=== PATIENT | male | born 1980 | race Caucasian/White ===

== ENCOUNTER → 2019-11-12 13:30 | Outpatient (BNVA) | payer MEDICAID, SELFPAY | PROVIDERS: Family Provider Internal Medicine; PCP Internal Medicine; Visit Provider Specialist | DX: G35 Multiple sclerosis (principal); F17.210 Nicotine dependence, cigarettes, uncomplicated | CPT/HCPCS: 99214 ==

== ENCOUNTER 2019-12-09 08:51 | Outpatient (CLI) | payer MEDICAID, SELFPAY ==
--- NOTE | 2019-12-10 13:59 | PC.NURSE ---
Addendum entered by Sunita Gabriel LPN 12/23/19 15:21: DIAGNOSIS FOR THIS INFUSION IS G35 MULTIPLE SCLEROSIS PER Dr.Applegate GEORGE ,MELISSA 15:22 12/23/2019. Original Note: 12.09.19 0855 IV access in LT ac space by Sunita Gabriel LPN 0900 Tylenol 1000mg PO administered 0900 Benadryl 25mg IVP over 5 minutes 0905 Solumedrol 125mg IVP over 15 minutes by TIA Hendricks 1000 Ocrevus 600mg infusion started at 200ml/hr 1300 infusion complete, iv d/c catheter intact, pressure dressing applied, Sunita Gabriel LPN
== END 2019-12-09 08:52 | disposition home or self-care (01) ==
LOC: NSACUTE 08:53
PROVIDERS: Family Provider Internal Medicine; PCP Internal Medicine; Visit Provider Specialist
DX: G35 Multiple sclerosis (principal)
CPT/HCPCS: 96374; 96375; 96413; 96415; J1200; J2350; J2930; J7040

== ENCOUNTER → 2019-12-10 13:54 | Outpatient (BNVA) | payer MEDICAID, SELFPAY | PROVIDERS: Family Provider Internal Medicine; PCP Internal Medicine; Visit Provider Anesthesiology | DX: M54.5 Low back pain (principal); M79.651 Pain in right thigh; M79.652 Pain in left thigh; F17.210 Nicotine dependence, cigarettes, uncomplicated; Z79.891 Long term (current) use of opiate analgesic; Z71.6 Tobacco abuse counseling | CPT/HCPCS: 99214 ==

== ENCOUNTER → 2020-04-03 08:27 | Outpatient (BNVA) | payer MEDICAID, SELFPAY | PROVIDERS: Family Provider Internal Medicine; PCP Internal Medicine; Visit Provider Anesthesiology | DX: M54.41 Lumbago with sciatica, right side (principal); M54.42 Lumbago with sciatica, left side; F17.210 Nicotine dependence, cigarettes, uncomplicated; Z79.891 Long term (current) use of opiate analgesic | CPT/HCPCS: 99214 ==

== ENCOUNTER 2020-05-27 09:32 | Outpatient (CLI) | payer MEDICAID, SELFPAY ==
--- NOTE | 2020-06-09 15:30 | PC.NURSE ---
05/27/2020 1300 Ocrevus initiated at 40mls/hr 1330 Ocreuvs titrated 80 mls/hr 1400 titrate 120 mls/hr. 1430 titrated 140 mls/ hr. 1500 titrated 160mls/hr. 1530 titrated 180mls. hr 1600 max rate 200. 1623 Infusion completed. IV discontinued. IV removed, catheter end intact visually cobbann dressing applied.
== END 2020-05-27 09:33 | disposition home or self-care (01) ==
LOC: NSACUTE 09:33
PROVIDERS: Family Provider Internal Medicine; PCP Internal Medicine; Visit Provider Specialist
DX: G35 Multiple sclerosis (principal)
CPT/HCPCS: 96365; 96366; 96375; 99214; J2350; J7040

== ENCOUNTER → 2020-06-02 08:58 | Outpatient (BNVA) | payer MEDICAID, SELFPAY | PROVIDERS: Family Provider Internal Medicine; PCP Internal Medicine; Visit Provider Anesthesiology | DX: M54.42 Lumbago with sciatica, left side (principal); M54.41 Lumbago with sciatica, right side; F17.210 Nicotine dependence, cigarettes, uncomplicated; Z79.891 Long term (current) use of opiate analgesic; Z71.6 Tobacco abuse counseling | CPT/HCPCS: 99214 ==

== ENCOUNTER → 2020-08-06 10:26 | Outpatient (BNVA) | payer MEDICAID, SELFPAY | PROVIDERS: Family Provider Internal Medicine; PCP Internal Medicine; Visit Provider Anesthesiology | DX: M54.5 Low back pain (principal); F17.210 Nicotine dependence, cigarettes, uncomplicated; Z79.891 Long term (current) use of opiate analgesic | CPT/HCPCS: 99212; 99214 ==

== ENCOUNTER → 2020-09-29 10:32 | Outpatient (BNVA) | payer MEDICAID, SELFPAY | PROVIDERS: Family Provider Internal Medicine; PCP Internal Medicine; Visit Provider Nurse Practitioner | DX: M54.5 Low back pain (principal); G35 Multiple sclerosis; F17.210 Nicotine dependence, cigarettes, uncomplicated; Z79.891 Long term (current) use of opiate analgesic | CPT/HCPCS: 99214 ==

== ENCOUNTER → 2020-10-27 13:57 | Outpatient (BNVA) | payer MEDICAID, SELFPAY | PROVIDERS: Family Provider Internal Medicine; PCP Internal Medicine; Visit Provider Anesthesiology | DX: M54.5 Low back pain (principal); F17.210 Nicotine dependence, cigarettes, uncomplicated; Z79.891 Long term (current) use of opiate analgesic | CPT/HCPCS: 99213 ==

== ENCOUNTER 2020-11-18 08:50 | Outpatient (CLI) | payer BC, MEDICAID, SELFPAY ==
[2020-11-18] MEDS: acetaminophen 500 mg Tablet 1000 MG PO (09:50)
[2020-11-18] MEDS: diphenhydrAMINE 50 mg/mL SDV 1mL 25 MG IVP (10:05)
== END 2020-11-18 08:51 | disposition home or self-care (01) ==
LOC: NSACUTE 08:53
PROVIDERS: Family Provider Internal Medicine; PCP Internal Medicine; Visit Provider Specialist
DX: G35 Multiple sclerosis (principal); F17.210 Nicotine dependence, cigarettes, uncomplicated
CPT/HCPCS: 96365; 96366; 96375; 99213; J1200; J2350; J2930; J7040

== ENCOUNTER → 2020-12-23 08:49 | Outpatient (BNVA) | payer BC, MEDICAID, SELFPAY | PROVIDERS: Family Provider Internal Medicine; PCP Internal Medicine; Visit Provider Anesthesiology | DX: M54.5 Low back pain (principal); F17.210 Nicotine dependence, cigarettes, uncomplicated; Z79.891 Long term (current) use of opiate analgesic | CPT/HCPCS: 99213 ==

== ENCOUNTER → 2021-02-23 08:20 | Outpatient (BNVA) | payer BC, MEDICAID, SELFPAY | PROVIDERS: Family Provider Internal Medicine; PCP Internal Medicine; Visit Provider Anesthesiology | DX: M54.5 Low back pain (principal); F17.210 Nicotine dependence, cigarettes, uncomplicated; Z79.891 Long term (current) use of opiate analgesic | CPT/HCPCS: 99213 ==

== ENCOUNTER → 2021-04-23 08:30 | Outpatient (BNVA) | payer BC, MEDICAID, SELFPAY | PROVIDERS: PCP Internal Medicine; Visit Provider Anesthesiology | DX: M54.5 Low back pain (principal); Z87.891 Personal history of nicotine dependence; Z79.891 Long term (current) use of opiate analgesic | CPT/HCPCS: 99213 ==

== ENCOUNTER → 2021-04-28 09:32 | Outpatient (BNVA) | payer BC, SELFPAY | PROVIDERS: PCP Internal Medicine; Visit Provider Social Worker | DX: F06.4 Anxiety disorder due to known physiological condition (principal) | CPT/HCPCS: 90834 ==

== ENCOUNTER → 2021-05-14 14:42 | Outpatient (BNVA) | payer BC, SELFPAY | PROVIDERS: PCP Internal Medicine; Visit Provider Registered Nurse Neonatal Intensive Care | DX: Z20.822 Contact with and (suspected) exposure to COVID-19 (principal) | CPT/HCPCS: 87635 ==

== ENCOUNTER → 2021-06-22 09:10 | Outpatient (BNVA) | payer BC, SELFPAY | PROVIDERS: PCP Internal Medicine; Visit Provider Anesthesiology | DX: M54.5 Low back pain (principal); Z79.891 Long term (current) use of opiate analgesic | CPT/HCPCS: 99213 ==

== ENCOUNTER 2021-07-19 09:34 | Outpatient (CLI) | payer BC, MEDICAID, SELFPAY ==
[2021-07-19] VITALS (7 sets, daily range): BP systolic 97–127; BP diastolic 59–76; PULSE 66–85; RESP 16–18; TEMP 36.2–37.1; O2SAT 96–99
[2021-07-19] MEDS: acetaminophen 500 mg Tablet 1000 MG PO (10:20)
[2021-07-19] MEDS: sodium chloride 0.9% 250 ML 75 ML IV (10:24)
[2021-07-19] MEDS: diphenhydrAMINE 50 mg/mL SDV 1mL 25 MG IV (10:25)
== END 2021-07-19 09:35 | disposition home or self-care (01) ==
LOC: ONCMED 09:38
PROVIDERS: PCP Internal Medicine; Visit Provider Specialist
DX: G35 Multiple sclerosis (principal); Z86.16 Personal history of COVID-19
CPT/HCPCS: 96365; 96366; 96375; 99214; J1200; J2350; J7050

== ENCOUNTER 2021-08-03 06:42 | Outpatient (CLI) | payer BC, MEDICAID, SELFPAY ==
[2021-08-03] VITALS (7 sets, daily range): BP systolic 105–112; BP diastolic 45–64; PULSE 67–78; RESP 18; TEMP 36.4–37.5; O2SAT 98–100
[2021-08-03] MEDS: acetaminophen 500 mg Tablet 1000 MG PO (09:48)
[2021-08-03] MEDS: diphenhydrAMINE 50 mg/mL SDV 1mL 25 MG IV (09:55)
[2021-08-03] MEDS: sodium chloride 0.9% 250 ML 75 ML IV (09:55)
== END 2021-08-03 06:43 | disposition home or self-care (01) ==
LOC: ONCMED 06:43
PROVIDERS: PCP Internal Medicine; Visit Provider Specialist
DX: G35 Multiple sclerosis (principal)
CPT/HCPCS: 96365; 96366; 96375; J1200; J2350; J7050

== ENCOUNTER 2021-08-04 08:32 | Outpatient (CLI) | payer BC, MEDICAID, SELFPAY ==
--- NOTE | 2021-08-04 08:36 | MR_ITS ---
WS: [id number] MRI HEAD WITH CONTRAST TECHNIQUE: Sagittal T1, T2 axial, T2 axial FLAIR, axial susceptibility weighted imaging, axial diffus ion weighted images, and coronal T2 images were obtained. Pre and post-T1 axial and post T1 coronal i mages. ADC and FSPGR images. CLINICAL INFORMATION: G35 - Multiple sclerosis COMPARISON: MRI May 2018 and December 2016 FINDINGS: No evidence of restricted diffusion to suggest acute ischemia. Ventricular system and basal cisterns are patent. Mild patchy supra and infratentorial white matter changes some in a pericallosal distribu tion compatible with chronic demyelinating plaques. No abnormal gadolinium enhancement to indicate ac tive disease. The number and distribution of lesions is stable compared to 2018. No significant disea se progression. Mild T1 hypointense lesion load. No significant parenchymal volume loss. No significa nt corpus callosal atrophy. Normal vascular flow voids at the skull base. No extra-axial fluid collections. Mild mucosal thickeni ng in the frontal sinuses. Mastoid air cells are well aerated. No hemosiderin on susceptibly weighted images. MR/MR head wo/w con [id number] IMPRESSION: 1. Mild patchy supra and infratentorial white matter changes compatible with c hronic demyelinating plaques. No significant disease progression. 2. No enhancing lesions to indicate active disease. 3. Mild T1 hypointense lesion load. No significant parenchymal volume loss. 4. No abnormal gadolinium enhancement. 5. No hemosiderin on susceptibly weighted images. 6. No significant atrophy of the corpus callosum.
[2021-08-04] MEDS: gadobenate dimeglumine 20 mL vial IV (09:38)
== END 2021-08-04 08:33 | disposition home or self-care (01) ==
PROVIDERS: PCP Internal Medicine; Visit Provider Specialist
DX: G35 Multiple sclerosis (principal)
CPT/HCPCS: 70553; A9577

== ENCOUNTER 2021-08-13 10:30 | Outpatient (CLI) | payer BC, MEDICAID, SELFPAY ==
--- NOTE | 2021-08-13 10:40 | MR_ITS ---
WS: [id number] MRI THORACIC SPINE with and without contrast. HISTORY: G35 - Multiple sclerosis COMPARISON: 01/11/2019 TECHNIQUE: Multiplanar sequences are performed in sagittal and axial planes. Sagittal and axial T1 fat sat sequences post-MultiHance 16 cc IV. Posterior thoracic alignment is normal. Again noted are multilevel areas of increased signal within t he thoracic cord with history of demyelination. Very subtle increased T2 signal at the T3, T4, T6, T7 and T9 levels. Largest area of involvement is 14 mm at T7. These changes were present on the prior s tudy. None of these lesions enhance. No cord enlargement or atrophy. Also noted is increased T2 signal in the RIGHT lateral cervical cord at the C7 level. T1-2: Normal. T2-3: Normal. T3-4: Mild bilateral foraminal narrowing. T4-5: Moderate bilateral foraminal narrowing due to facet disease. T5-6: Moderate bilateral foraminal narrowing due to facet disease. T6-7: Moderate bilateral foraminal narrowing due to facet disease. T7-8: Moderate bilateral foraminal narrowing due to facet disease. T8-9: Moderate bilateral foraminal narrowing due to facet disease. T9-10: Moderate bilateral foraminal narrowing due to facet disease. T10-11: Moderate bilateral foraminal narrowing due to facet disease. T11-12: Moderate bilateral foraminal narrowing due to facet disease. MR/MR thoracic spine wo/w [id number] IMPRESSION: 1. No enhancing demyelinating lesions throughout the thoracic cord. 2. Multilevel areas of demyelination in the thoracic cord are similar distribu tion to 01/11/2019. No cord atrophy. 3. Multilevel moderate bilateral foraminal narrowing due to facet disease as a walter.
--- NOTE | 2021-08-13 10:40 | MR_ITS ---
WS: [id number] MRI CERVICAL SPINE with and without contrast HISTORY: G35 - Multiple sclerosis COMPARISON: 01/11/2019 Technique: Multiplanar, multisequence noncontrast imaging of the cervical spine. Sagittal and axial T 1 fat sat sequences post-MultiHance 16 cc IV. Normal cervical alignment with no compression fracture or significant disc space narrowing. Significant artifact on several sequence probably due to motion during swallowing. Cervical spine dem yelinating lesions are not as well visualized today but this is due to motion. There is no enhancemen t within the cervical cord. Seen best on the axial imaging is focal increased signal in the LEFT late ral cord at the C2 level and RIGHT lateral cord at C3. There may be an additional demyelinating lesio ns but I cannot confirm that due to the motion. Craniocervical junction, C1 and C2 relationship, odontoid process and soft tissues are normal. C2-C3: Normal. C3-C4: Osteophytes with no stenosis. C4-C5: Mild annular disc bulging and vertebral body osteophytes. Very mild narrowing of the LEFT fora men. C5-C6: Mild osteophytic ridging without stenosis. C6-C7: Normal. C7-T1: Normal. Paraspinal soft tissue are normal. MR/MR cervical spine wo/w [id number] IMPRESSION: 1. Quality of this study is compromised by motion. Unfortunately the T2 sequen russell without contrast are significantly graded by breathing and swallowing motio n. 2. There are no new or enhancing demyelinating lesions identified. No cord atr ophy or necrosis identified.
[2021-08-13] MEDS: gadobenate dimeglumine 20 mL vial IV (11:45)
== END 2021-08-13 10:31 | disposition home or self-care (01) ==
LOC: RADSHAW 10:32
PROVIDERS: PCP Internal Medicine; Visit Provider Specialist
DX: G35 Multiple sclerosis (principal)
CPT/HCPCS: 72156; 72157; A9577

== ENCOUNTER → 2021-08-25 09:27 | Outpatient (BNVA) | payer BC, MEDICAID, SELFPAY | PROVIDERS: PCP Internal Medicine; Visit Provider Anesthesiology | DX: M54.50 Low back pain, unspecified (principal); M79.606 Pain in leg, unspecified; Z79.891 Long term (current) use of opiate analgesic | CPT/HCPCS: 99213 ==

== ENCOUNTER → 2021-10-21 08:07 | Outpatient (BNVA) | payer BC, MEDICAID, SELFPAY | PROVIDERS: PCP Internal Medicine; Visit Provider Anesthesiology | DX: Z02.89 Encounter for other administrative examinations (principal); M54.50 Low back pain, unspecified; Z79.891 Long term (current) use of opiate analgesic; Z87.891 Personal history of nicotine dependence | CPT/HCPCS: 99213 ==

== ENCOUNTER 2022-01-06 20:00 | Outpatient (CLI) | payer BC, MEDICAID, SELFPAY | END 2022-01-06 20:01 | disposition home or self-care (01) | LOC: SLEEP 01-07 09:04 | PROVIDERS: PCP Internal Medicine; Visit Provider Anesthesiology Pain Medicine | DX: G47.10 Hypersomnia, unspecified (principal); R06.83 Snoring; R53.83 Other fatigue | CPT/HCPCS: 95810 ==

== ENCOUNTER 2022-01-18 08:31 | Outpatient (CLI) | payer BC, MEDICAID, SELFPAY ==
[2022-01-18 08:41] VITALS: BP 113/72; PULSE 76; RESP 18; TEMP 36.2; O2SAT 98
[2022-01-18] MEDS: acetaminophen 500 mg Tablet 1000 MG PO (09:06)
[2022-01-18] MEDS: sodium chloride 0.9% 250 ML 50 ML IV (09:09)
[2022-01-18] MEDS: diphenhydrAMINE 50 mg/mL SDV 1mL 25 MG IVP ×2 (09:10→10:29)
[2022-01-18 09:31] VITALS: BP 108/72; PULSE 63; RESP 18; TEMP 36.2; O2SAT 98
[2022-01-18 09:49] VITALS: BP 101/65; PULSE 61; RESP 16; TEMP 36.2; O2SAT 96
[2022-01-18 10:18] VITALS: BP 100/65; PULSE 67; RESP 16; TEMP 37; O2SAT 97
[2022-01-18 10:42] VITALS: BP 98/64; PULSE 63; RESP 18; TEMP 36.3; O2SAT 97
[2022-01-18 12:30] VITALS: BP 103/66; PULSE 56; RESP 18; TEMP 36.4; O2SAT 98
== END 2022-01-18 08:32 | disposition home or self-care (01) ==
PROVIDERS: PCP Internal Medicine; Referring Provider Specialist; Visit Provider Specialist
DX: G35 Multiple sclerosis (principal)
CPT/HCPCS: 96365; 96366; 96375; 96376; J1200; J2350; J7040; J7050

== ENCOUNTER 2022-04-26 08:50 | Outpatient (CLI) | payer BC, MEDICAID, SELFPAY ==
--- NOTE | 2022-04-26 09:01 | XR_ITS ---
WS: [email or web address] Lumbar spine with flexion and extension lateral, 04/26/2022 Clinical Data: VERTEBROGENIC LOW BACK PAIN Comparison: Lumbar spine, 12/28/2016. Findings: No compression fractures or subluxation is seen. No disc space narrowing is seen. No limitation of motion or subluxation is seen. There is a large amount of fecal material in the colon. XR/XR lumbar spine f/e only [id number] Impression: Negative lateral lumbar spine.
== END 2022-04-26 08:51 | disposition home or self-care (01) ==
LOC: RAD 08:54
PROVIDERS: PCP Internal Medicine; Visit Provider Nurse Practitioner
DX: M54.51 Vertebrogenic low back pain (principal)
CPT/HCPCS: 72120

== ENCOUNTER → 2022-06-06 14:15 | Outpatient (BNVA) | payer BC, MEDICAID, SELFPAY | PROVIDERS: PCP Internal Medicine; Visit Provider Specialist | DX: G35 Multiple sclerosis (principal); Z87.891 Personal history of nicotine dependence | CPT/HCPCS: 99213; 99214 ==

== ENCOUNTER 2022-07-20 08:26 | Outpatient (CLI) | payer BC, MEDICAID, SELFPAY ==
[2022-07-20 08:31] VITALS: BP 97/62; PULSE 85; RESP 18; TEMP 36.1; O2SAT 99
[2022-07-20] MEDS: acetaminophen 500 mg Tablet 1000 MG PO (09:12)
[2022-07-20] MEDS: sodium chloride 0.9% 250 ML 50 ML IV (09:12)
[2022-07-20] MEDS: diphenhydrAMINE 50 mg/mL SDV 1mL 25 MG IVP ×3 (09:14→11:56)
[2022-07-20 10:01] VITALS: BP 102/66; PULSE 58; RESP 16; TEMP 37.1; O2SAT 96
[2022-07-20 10:40] VITALS: BP 109/69; PULSE 64; RESP 18; TEMP 36.7; O2SAT 97
[2022-07-20 13:00] VITALS: BP 99/64; PULSE 65; RESP 18; TEMP 36.6; O2SAT 99
== END 2022-07-20 08:27 | disposition home or self-care (01) ==
LOC: ONCMED 08:27
PROVIDERS: PCP Internal Medicine; Visit Provider Specialist
DX: G35 Multiple sclerosis (principal)
CPT/HCPCS: 96365; 96366; 96375; 96376; J1200; J2350; J7040; J7050

== ENCOUNTER 2022-08-26 14:52 | Outpatient (CLI) | payer BC, MEDICAID, SELFPAY ==
--- NOTE | 2022-08-26 14:57 | CT_ITS ---
WS: [id number] CT CHEST WITHOUT INTRAVENOUS CONTRAST HISTORY: WEIGHT LOSS/PULMONARY NODULE TECHNIQUE: Contiguous 5 mm axial imaging performed on the thorax. Coronal and sagittal reformats are submitted. All CT scans at [facility] use at least one of these dose optimization techniques: automated exposure control; mA and/or kV adjustment per patient size (includes targeted exams where dose is matched to clinical indication); or iterative reconstruction. CONTRAST: None DLP: 627.11 mGy.cm COMPARISON: Chest radiograph 06/22/2022 Lungs and central airway: Mild elevation of the LEFT hemidiaphragm. There is a wedge-shaped soft tiss ue mass along the medial inferior LEFT lower lobe abutting the paraspinal soft tissues. Wedge-shaped soft tissue nodule measures 18 x 17 mm. There is adjacent pleural thickening and tethering and atelec tasis and groundglass attenuation. Additional small subpleural cyst in the posterior RIGHT upper lobe . Subpleural 3 mm nodule in the lingula. LEFT perifissural nodule measures 3 mm. Pleura: Normal. No pleural effusion. Heart and pericardium: Normal size heart with no pericardial effusion. Mediastinum and huma: No definite lymph nodes are identified. There are a few lymph nodes which are n ot enlarged. Study is limited without IV contrast. Vessels: Normal size pulmonary artery and aorta. Chest wall and lower neck: No soft tissue masses. Upper abdomen: Marked distention of the stomach with food products. The visualized transverse colon i s distended with retained fecal material. No adrenal abnormality. Limited evaluation of the liver fro m metastatic nodules without IV contrast. Osseous structures: No destructive process. CT/CT chest wo con [id number] IMPRESSION: 1. Wedge-shaped consolidation medial LEFT lower lobe measures 18 x 17 mm. Wedg e-shaped consolidation with adjacent atelectasis. As compared to the radiograph obtained on 06/22/2022 there has been an improvement in aeration. I suspect thi s may be the residual of pneumonia. Continued follow-up is recommended to exclu de underlying small neoplasm. There are a few adjacent very small pulmonary nod ules which are also likely benign. Recommendation: 6-[address] follow-up with IV contrast. PET/CT imaging may also provide additional information. 2. No adenopathy appreciated on this unenhanced exam.
== END 2022-08-26 14:53 | disposition home or self-care (01) ==
LOC: RAD 14:53
PROVIDERS: PCP Internal Medicine; Visit Provider Internal Medicine
DX: R91.1 Solitary pulmonary nodule (principal); R63.4 Abnormal weight loss; J98.11 Atelectasis
CPT/HCPCS: 71250

== ENCOUNTER → 2022-09-27 14:50 | Outpatient (BNVA) | payer BC, MEDICAID, SELFPAY | PROVIDERS: PCP Internal Medicine; Visit Provider Internal Medicine | DX: E11.9 Type 2 diabetes mellitus without complications (principal); E78.2 Mixed hyperlipidemia | CPT/HCPCS: 36415; 80053; 80061; 82044; 83036; 86337; 86341 ==

== ENCOUNTER 2022-10-31 15:27 | Outpatient (CLI) | payer BC, MEDICAID, SELFPAY ==
--- NOTE | 2022-10-31 16:04 | CT_ITS ---
WS: [id number] CT CHEST WITH AND WITHOUT INTRAVENOUS CONTRAST HISTORY: Follow-up from 08/26/2022. TECHNIQUE: Contiguous 5 mm axial imaging performed on the thorax. Study performed with and without co ntrast. Coronal and sagittal reformats are submitted. All CT scans at [facility] use at least one of these dose optimization techniques: automated exposure control; mA and/or kV adjustment per p atient size (includes targeted exams where dose is matched to clinical indication); or iterative valentina nstruction. CONTRAST: Omnipaque 350; 95 mL IV. DLP: 621.11 mGy.cm COMPARISON: 08/26/2022 Lungs and central airway: Moderate pulmonary hyperexpansion from emphysema. 4 mm benign-appearing nod ule along the LEFT major fissure. Significant interval improvement in the inflammatory process and co nsolidation in the LEFT lower lobe since 08/26/2022. There is very minimal linear residual opacificat ion measuring 14 x 6 mm. There is mild persistent groundglass attenuation. Very mild bronchial wall t hickening involving the lower lobe branch. Very mild areas of groundglass attenuation LEFT upper lobe . No endobronchial lesion. Pleura: Normal. No pleural effusion. Heart and pericardium: Normal size heart with no pericardial effusion. Mediastinum and huma: No mediastinum or hilar adenopathy. Vessels: Normal size aortic and pulmonary artery. No coronary artery calcifications. Chest wall and lower neck: No soft tissue masses. Upper abdomen: Negative. Osseous structures: No destructive process. CT/CT chest wo/w con [id number] IMPRESSION: 1. Significant interval improvement in the consolidation and inflammatory proc ess in the LEFT lower lobe since 08/26/2021. Minimal residual linear consolidat ion measuring 14 x 6 mm persists. Configuration suggests atelectasis. No additi onal imaging follow-up is probably necessary at this time due to the significan t improvement unless clinically warranted. 2. No adenopathy. 3. No pleural effusions. 4. Moderate chronic emphysema.
[2022-10-31] MEDS: iohexol 350 mg/mL 500 mL Btl (per mL) IV (16:51)
== END 2022-10-31 15:28 | disposition home or self-care (01) ==
PROVIDERS: PCP Internal Medicine; Visit Provider Internal Medicine Pulmonary Disease
DX: Z12.2 Encounter for screening for malignant neoplasm of respiratory organs (principal); Z87.891 Personal history of nicotine dependence; R91.1 Solitary pulmonary nodule; J43.9 Emphysema, unspecified
CPT/HCPCS: 71270; Q9967

== ENCOUNTER 2022-12-06 11:07 | Outpatient (CLI) | payer BC, MEDICAID, SELFPAY | END 2022-12-06 11:08 | disposition home or self-care (01) | LOC: RT 11:09 | PROVIDERS: PCP Internal Medicine; Visit Provider Internal Medicine Pulmonary Disease | DX: R91.8 Other nonspecific abnormal finding of lung field (principal); Z87.891 Personal history of nicotine dependence | CPT/HCPCS: 94060; 94726; 94729 ==

== ENCOUNTER → 2023-01-04 09:21 | Outpatient (BNVA) | payer MEDICARE, BC, MEDICAID, SELFPAY | PROVIDERS: PCP Internal Medicine; Visit Provider Specialist | DX: G35 Multiple sclerosis (principal); F17.200 Nicotine dependence, unspecified, uncomplicated | CPT/HCPCS: 99213 ==

== ENCOUNTER 2023-01-30 08:54 | Outpatient (CLI) | payer MEDICARE, MEDICAID, SELFPAY ==
[2023-01-30 10:18] LABS: Estmated Average Glucose 128; Hemoglobin A1C 6.1 % (4.0-6.0)
[2023-01-30 10:27] LABS: Alanine Aminotransferase 14 U/L (0-41); Albumin Level 4.1 g/dL (3.5-5.2); Alkaline Phosphatase 118 U/L (40-130); Anion Gap 12.3 (5-19); Aspartate Amino Transferase 17 U/L (0-40); Blood Urea Nitrogen 13 mg/dL (6-20); Calcium 8.6 mg/dL (8.5-10.5); Carbon Dioxide 25 mmol/L (22-29); Chloride 104 mmol/L (98-107); Chol HDL Ratio 3.74 mg/dL (1.0-5.00); Cholesterol 146 mg/dL (0-200); Globulin 2.5 g/dL (1.3-4.6); Glomerular Filtration Rate 107.1 mL/min (90-130); Glucose 140 mg/dL (65-115); HDL Cholesterol 39 mg/dL (60-100); LDL Cholesterol Calculated 83 mg/dL (50-129); LDL HDL Ratio 2.13 RATIO (0.00-3.22); Osmolality Calculated 286 mOsm/kg (285-295); Potassium 4.3 mmol/L (3.5-5.1); Sodium 137 mmol/L (136-145); Total Bilirubin 0.3 mg/dL (0.15-1.2); Total Protein 6.6 g/dL (6.6-8.7); Triglycerides 121 mg/dL (0-150)
[2023-01-30 10:48] LABS: Creatinine Urine, Random 83 mg/dL (39-259); Microalbum Creatinine Ratio Ur 12 mg/dL (0-20); Microalbumin Random Urine 1 ug/dL (0-20)
== END 2023-01-30 08:55 | disposition home or self-care (01) ==
LOC: LAB 09:00
PROVIDERS: PCP Internal Medicine; Visit Provider Internal Medicine
DX: E10.9 Type 1 diabetes mellitus without complications (principal); E78.2 Mixed hyperlipidemia; Z79.4 Long term (current) use of insulin; Z79.84 Long term (current) use of oral hypoglycemic drugs
CPT/HCPCS: 36415; 80053; 80061; 82044; 83036; 99214

== ENCOUNTER 2023-03-24 20:56 | Emergency (ER) | payer MEDICARE, MEDICAID, SELFPAY ==
--- NOTE | 2023-03-24 20:57 | ECG_ITS ---
[facility] Test Date: 2023-03-24 Pat Name: Jim Recinos Department: Room: Gender: Male Web Applications Architect: : 1980 Requested By: Valeria Sharma Order Number: [id number] Ruperto MD: Micheal Galdamez M.D. Measurements Intervals [place] Rate: 96 P: 85 KS: 166 QRS: 27 QRSD: 101 T: 67 QT: 325 QTc: 413 Interpretive Statements SINUS RHYTHM No previous ECG available for comparison Electronically Signed On 03-24-2023 22:04:22 CDT by Micheal Galdamez M.D. [id number]
--- NOTE | 2023-03-24 20:57 | XRR_ITS ---
PROCEDURE INFORMATION: Exam: XR Chest Exam date and time: 03/24/2023 9:09 PM Age: 42 years old Clinical indication: Pain; Other: Unspecified; Additional info: Cp TECHNIQUE: Imaging protocol: Radiologic exam of the chest. Views: 1 view. COMPARISON: CT chest wo/w con [id number] 10/31/2022 4:40 PM FINDINGS: Lungs: Unremarkable. No consolidation. Pleural spaces: Unremarkable. No pleural effusion. No pneumothorax. Heart/Mediastinum: Unremarkable. No cardiomegaly. Bones/joints: Unremarkable. XR/XR chest 1V portable [id number] IMPRESSION: No acute findings.
[2023-03-24 20:59] VITALS: BP 122/72; PULSE 102; RESP 14; TEMP 37.6; O2SAT 96
--- NOTE | 2023-03-24 21:33 | ED_ITS ---
HPI - Chest Pain General: Chief Complaint: Chest Pain Stated Complaint: headache, chest pain Time Seen by Provider: 03/24/23 20:58 Source: patient Mode of arrival: ambulatory Limitations: no limitations History of Present Illness: 42-year-old male states of last 4 to 5 days he been having some generalized malaise states been having a constant sharp chest pain as well over his left chest. States the pain is worse with movement and palpation improved with rest. States pain is currently chest 10 he denies any cough denies any fever denies any shortness of breath. States he had a mild headache as well. Associated symptoms: Deny abdominal pain, dyspnea, fever(s), nausea or vomiting Review of Systems Const: Denies: fever(s), chills or body aches Eyes: Denies: eye discomfort ENMT: Reports: dental pain; Denies: throat pain Card: Reports: chest pain Resp: Denies: dyspnea GI: Denies: abdominal pain, nausea, vomiting or diarrhea Musc: Denies: neck pain or back pain Skin/Breast: Denies: rash Neuro: Reports: headache(s) PFSH ED PFSH: Medical History Diabetes Encounter for long-term use of opiate analgesic Lumbar back pain chronic Multiple sclerosis Opioid contract exists Family History Other Chronic kidney disease (CKD) Diabetes Hypertension Denies family history of Stroke Social History Smoking and tobacco status: former smoker Quit status (tobacco): has quit using tobacco Year quit tobacco: 2022 Former quit date comment: 1 ppd x 30 years Second hand smoke exposure: No Alcohol intake: never Substance/Drug Use: never Physical Exam Const: COMMON NORMALS: no acute distress, patient oriented x3 and healthy appearing HENMT: COMMON NORMALS: normocephalic and atraumatic HEAD & SCALP: normoceph alic and atraumatic Neck/C-Spine: COMMON NORMALS: full ROM and supple Chest: COMMONS NORMALS: normal inspection of the chest OTHER: tenderness over left chest wall Resp: COMMON NORMALS: normal respiratory effort, No retractions, No use of accessory muscles and clear to auscultation bilaterally AUSCULTATION: clear to auscultation bilaterally Cardio: COMMON NORMALS: regular rate, regular rhythm and No murmurs present (Cardio) RATE: regular rate RHYTHM: regular rhythm GI: COMMON NORMALS: Normal to inspection, nondistended, normoactive bowel sounds present, Soft to palpation, non-tender and no masses PALPATION: Yes Soft to palpation Extremity: COMMON NORMALS: normal to inspection and full ROM Neuro: COMMON NORMALS: patient oriented x3, moves all extremities and no focal motor deficits Psych: COMMON NORMALS: mental status grossly normal, Normal thought process present and cooperative THOUGHT PROCESS: Normal thought process present Skin: COMMON NORMALS: no rashes or lesions noted and no wounds GENERAL SKIN EXAM: no rashes or lesions noted Course 2 Vital Signs: Vital signs: Vital Signs Temperature 99.6 F 03/24/23 20:59 Pulse Rate 102 H 03/24/23 20:59 Respiratory Rate 14 03/24/23 20:59 Blood Pressure 122/72 03/24/23 20:59 Pulse Oximetry 96 03/24/23 20:59 Oxygen Delivery Me thod Room Air 03/24/23 20:59 MDM - Chest Pain Medical Decision Making Patient presents for chest pains atypical in nature he is point tender on exam likely muscular his troponin here is normal no recent due to hour troponin his pain has been going on for 4 days no signs acute coronary syndrome he is stable for discharge he will follow-up with PCP and return if worsening. Medical Records I reviewed the patient's medical records. Lab Data I reviewed the patient's lab results. 03/24/23 21:15 03/24/23 21:15 Laboratory Results WBC 8.3 10^3/uL (4.0-10.0) 03/24/23 21:15 RBC 5.51 10^6/uL (4.1-5.3) H 03/24/23 21:15 Hgb 15.8 g/dL (11.7-16.6) 03/24/23 21:15 Hct 47.5 % (42.0-52.0) 03/24/23 21:15 MCV 86.2 fl (80-94) 03/24/23 21:15 MCH 28.7 pg (28.0-34.0) 03/24/23 21:15 MCHC 33.3 g/dL (30.0-36.0) 03/24/23 21:15 RDW 12.3 % (12.1-15.1) 03/24/23 21:15 Plt Count 231 10^3/cmm (130-400) 03/24/23 21:15 MPV 9.7 fL (7.4-10.4) 03/24/23 21:15 Neut % (Auto) 64.5 % 03/24/23 21:15 Lymph % (Auto) 22.5 % 03/24/23 21:15 [place] % (Auto) 10.4 % 03/24/23 21:15 Eos % (Auto) 1.7 % 03/24/23 21:15 Baso % (Auto) 0.5 % 03/24/23 21:15 Neut # (Auto) 5.33 10^3/uL (1.8-7.7) 03/24/23 21:15 Lymph # (Auto) 1.9 10^3/uL (0.8-4.8) 03/24/23 21:15 [place] # (Auto) 0.9 10^3/uL (0.2-0.9) 03/24/23 21:15 Eos # (Auto) 0.1 10^3/uL (0.0-0.8) 03/24/23 21:15 Baso # (Auto) 0.0 10^3/uL (0.0-0.1) 03/24/23 21:15 Nucleated RBC % (auto) 0 % 03/24/23 21:15 Nucleated RBCs # 0.0 /100WBC 03/24/23 21:15 PT 12.90 SECONDS (12.1-14.9) 03/24/23 21:15 INR 0.94 (0.8-1.2) 03/24/23 21:15 Sodium 142 mmol/L (136-145) 03/24/23 21:15 Potassium 4.0 mmol/L (3.5-5.1) 03/24/23 21:15 Chloride 104 mmol/L (98-107) 03/24/23 21:15 Carbon Dioxide 27 mmol/L (22-29) 03/24/23 21:15 Anion Gap 15.0 (5-19) 03/24/23 21:15 BUN 10 mg/dL (6-20) 03/24/23 21:15 Creatinine 0.6 mg/dL (0.7-1.2) L 03/24/23 21:15 GFR Calculation 149.2 mL/min (90-130) H 03/24/23 21:15 Glucose 106 mg/dL (65-115) 03/24/23 21:15 Calculated Osmolality 293 mOsm/kg (285-295) 03/24/23 21:15 Calcium 10.0 mg/dL (8.5-10.5) 03/24/23 21:15 Total Bilirubin 0.4 mg/dL (0.15-1.2) 03/24/23 21:15 AST 19 U/L (0-40) 03/24/23 21:15 ALT 22 U/L (0-41) 03/24/23 21:15 Alkaline Phosphatase 120 U/L (40-130) 03/24/23 21:15 Troponin T Baseline 6 ng/L (0-15) 03/24/23 21:15 Total Protein 7.4 g/dL (6.6-8.7) 03/24/23 21:15 Albumin 4.6 g/dL (3.5-5.2) 03/24/23 21:15 Globulin 2.8 g/dL (1.3-4.6) 03/24/23 21:15 EKG Data EKG 1: I personally reviewed and interpreted this EKG as follows: EKG interpretation date: 03/24/23 EKG interpretation time: 21:03 Interpretation: nsr hr [address] or t wave abnormalities qrs 101 qt 379 Discharge Plan Discharge Patient Disposition: Home Clinical Impression: Chest pain Condition: Stable Prescriptions: New Naprosyn 500 mg tablet 500 mg PO BID PRN (Reason: pain) Qty: 20 0RF No Action latanoprost 0.005 % drops 1 drop ophthalmic (eye) DAILY tizanidine 4 mg tablet 4 mg PO TID PRN (Reason: muscle spasticity) 30 Days Qty: 90 0RF hydrocodone-acetaminophen 10-325 mg tablet 1 tab PO QID 30 Days Qty: 120 0RF Rx Instructions: fill on or after 11/26/21 metformin 500 mg tablet 1,000 mg PO BID cholecalciferol (vitamin D3) 50 mcg (2,000 unit) capsule 50 mcg PO DAILY Qty: 120 2RF Rx Instructions: Take one daily Ocrevus 30 mg/mL solution IV .every 6 months albuterol sulfate [Ventolin HFA] 90 mcg/actuation HFA aerosol inhaler 1 inh inhalation QID PRN (Reason: shortness of breath or wheezing) Qty: 8.5 3RF insulin glargine [Lantus Solostar U-100 Insulin] 100 unit/mL (3 mL) insulin pen 30 unit SUBCUT DAILY Qty: 27 3RF Glucerna Shake Liquid See Rx Instructions PO .COMPLEX Qty: 1422 3RF Rx Instructions: 1 orally daily (DME) Dexcom G6 [employer] Misc See Rx Instructions .ROUTE .MEDSUPPLY Qty: 1 3RF Rx Instructions: change every 90 days (DME) Dexcom G6 Transmitter Device See Rx Instructions .ROUTE .MEDSUPPLY Qty: 1 3RF Rx Instructions: change every 3 months (DME) OneTouch Ultra Test Strip See Rx Instructions .Route Qty: 200 1RF Rx Instructions: check 1 to 2 time (DME) lancets [OneTouch UltraSoft Lancets] Misc See Rx Instructions .Route Qty: 100 0RF Rx Instructions: As directed (DME) blood-glucose meter [OneTouch Ultra2 Meter] Kit See Rx Instructions .Route Qty: 1 0RF Rx Instructions: check 1 to 2 (DME) Dexcom G6 Sensor Device See Rx Instructions .ROUTE .MEDSUPPLY Qty: 9 3RF Rx Instructions: change every 10 days (DME) pen needle, diabetic [BD Ultra-Fine Micro Pen Needle] 32 gauge x 1/4 needle See Rx Instructions .Route Qty: 400 3RF Rx Instructions: up to 4 times insulin lispro [Humalog KwikPen Insulin] 100 unit/mL insulin pen 10 unit SUBCUT TID Qty: 30 3RF Discharge Orders: Discharge ED (Routine); Ordered 03/24/23 Ordered By: Valeria Sharma Referrals: Beto Jarvis DO [Primary Care Provider] - 1-3 days Discharge Diet: Advance as tolerated Discharge Activity: Resume usual activity Patient Instructions: Chest Pain (ED) Coding Level of Care Code ED Drug Enforcement Agent for Cindy Arriola
[2023-03-24 21:55] LABS: INR 0.94 (0.8-1.2)
[2023-03-24 21:58] LABS: Basophils % 0.5 %; Eosinophils # 0.1 10^3/uL (0.0-0.8); Eosinophils % 1.7 %; Hematocrit 47.5 % (42.0-52.0); Hemoglobin 15.8 g/dL (11.7-16.6); Lymphocytes # 1.9 10^3/uL (0.8-4.8); Lymphocytes % 22.5 %; Mean Corpuscular HGB Conc 33.3 g/dL (30.0-36.0); Mean Corpuscular Hemoglobin 28.7 pg (28.0-34.0); Mean Corpuscular Volume 86.2 fl (80-94); Mean Platelet Volume 9.7 fL (7.4-10.4); Monocytes # 0.9 10^3/uL (0.2-0.9); Monocytes % 10.4 %; Neutrophils # 5.33 10^3/uL (1.8-7.7); Neutrophils % 64.5 %; Nucleated Red Blood Cells % 0 %; Platelet Count 231 10^3/cmm (130-400); Red Blood Count 5.51 10^6/uL (4.1-5.3); Red Cell Distribution Width 12.3 % (12.1-15.1); White Blood Count 8.3 10^3/uL (4.0-10.0)
[2023-03-24 21:59] LABS: Troponin(5th) Baseline 6 ng/L (0-15)
[2023-03-24 22:02] LABS: Alanine Aminotransferase 22 U/L (0-41); Albumin Level 4.6 g/dL (3.5-5.2); Alkaline Phosphatase 120 U/L (40-130); Aspartate Amino Transferase 19 U/L (0-40); Blood Urea Nitrogen 10 mg/dL (6-20); Carbon Dioxide 27 mmol/L (22-29); Chloride 104 mmol/L (98-107); Globulin 2.8 g/dL (1.3-4.6); Glomerular Filtration Rate 149.2 mL/min (90-130); Glucose 106 mg/dL (65-115); Osmolality Calculated 293 mOsm/kg (285-295); Sodium 142 mmol/L (136-145); Total Bilirubin 0.4 mg/dL (0.15-1.2); Total Protein 7.4 g/dL (6.6-8.7)
[2023-03-24 22:29] VITALS: BP 133/77; PULSE 97; RESP 16; O2SAT 96
== END 2023-03-24 22:30 | disposition home or self-care (01) ==
PROVIDERS: Emergency Provider Emergency Medicine; PCP Internal Medicine
DX: R07.9 Chest pain, unspecified (principal); Z79.4 Long term (current) use of insulin; Z79.84 Long term (current) use of oral hypoglycemic drugs; E11.9 Type 2 diabetes mellitus without complications; G35 Multiple sclerosis; Z87.891 Personal history of nicotine dependence
CPT/HCPCS: 36415; 71045; 80053; 84484; 85025; 85610; 93005; 99285

== ENCOUNTER 2023-05-30 15:09 | Outpatient (CLI) | payer MEDICARE, MEDICAID, BC, SELFPAY ==
[2023-05-30 16:40] LABS: Alanine Aminotransferase 18 U/L (0-41); Albumin Level 4.3 g/dL (3.5-5.2); Alkaline Phosphatase 98 U/L (40-130); Anion Gap 13.9 (5-19); Aspartate Amino Transferase 20 U/L (0-40); Blood Urea Nitrogen 14 mg/dL (6-20); Carbon Dioxide 26 mmol/L (22-29); Chloride 105 mmol/L (98-107); Chol HDL Ratio 3.38 mg/dL (1.0-5.00); Cholesterol 176 mg/dL (0-200); Free T4 Free Thyroxine 1.14 ng/dL (0.82-1.77); Globulin 2.4 g/dL (1.3-4.6); Glucose 108 mg/dL (65-115); HDL Cholesterol 52 mg/dL (60-100); LDL Cholesterol Calculated 84 mg/dL (50-129); LDL HDL Ratio 1.62 RATIO (0.00-3.22); Osmolality Calculated 293 mOsm/kg (285-295); Potassium 3.9 mmol/L (3.5-5.1); Sodium 141 mmol/L (136-145); Thyroid Stimulating Hormone 2.42 uIU/mL (0.27-4.20); Total Bilirubin 0.2 mg/dL (0.15-1.2); Total Protein 6.7 g/dL (6.6-8.7); Triglycerides 199 mg/dL (0-150)
[2023-05-30 16:42] LABS: Estmated Average Glucose 123; Hemoglobin A1C 5.9 % (4.0-6.0)
[2023-05-30 18:21] LABS: Creatinine Urine, Random 14 mg/dL (39-259); Microalbumin Random Urine 1 ug/dL (0-20)
[2023-05-30 18:22] LABS: Microalbum Creatinine Ratio Ur 71 mg/dL (0-20)
[2023-06-01 02:15] LABS: T3 Total 128 ng/dL (76-181)
== END 2023-05-30 15:10 | disposition home or self-care (01) ==
PROVIDERS: PCP Internal Medicine; Visit Provider Internal Medicine
DX: E10.9 Type 1 diabetes mellitus without complications (principal); E78.2 Mixed hyperlipidemia
CPT/HCPCS: 80053; 80061; 82044; 83036; 84439; 84443; 84480

== ENCOUNTER → 2023-06-05 13:30 | Outpatient (BNVA) | payer MEDICARE, MEDICAID, BC, SELFPAY | PROVIDERS: PCP Internal Medicine; Visit Provider Internal Medicine | DX: E78.2 Mixed hyperlipidemia (principal); E10.9 Type 1 diabetes mellitus without complications; Z79.4 Long term (current) use of insulin; Z79.84 Long term (current) use of oral hypoglycemic drugs | CPT/HCPCS: 99214 ==

== ENCOUNTER 2023-11-03 08:13 | Outpatient (CLI) | payer MEDICARE, MEDICAID, SELFPAY ==
[2023-11-03 09:27] LABS: Alanine Aminotransferase 33 U/L (0-41); Alkaline Phosphatase 144 U/L (40-130); Anion Gap 13.4 (5-19); Aspartate Amino Transferase 29 U/L (0-40); Blood Urea Nitrogen 14 mg/dL (6-20); Calcium 9.2 mg/dL (8.5-10.5); Carbon Dioxide 26 mmol/L (22-29); Chloride 108 mmol/L (98-107); Chol HDL Ratio 4.89 mg/dL (1.0-5.00); Cholesterol 186 mg/dL (0-200); Globulin 3.6 g/dL (1.3-4.6); Glomerular Filtration Rate 124.3 mL/min (90-130); Glucose 158 mg/dL (65-115); HDL Cholesterol 38 mg/dL (60-100); LDL Cholesterol Calculated 127 mg/dL (50-129); LDL HDL Ratio 3.34 RATIO (0.00-3.22); Osmolality Calculated 300 mOsm/kg (285-295); Potassium 4.4 mmol/L (3.5-5.1); Sodium 143 mmol/L (136-145); Total Bilirubin 0.3 mg/dL (0.15-1.2); Total Protein 7.6 g/dL (6.6-8.7); Triglycerides 105 mg/dL (0-150)
[2023-11-03 09:32] LABS: Estmated Average Glucose 146; Hemoglobin A1C 6.7 % (4.0-6.0)
[2023-11-03 09:44] LABS: Creatinine Urine, Random 108 mg/dL (39-259); Microalbum Creatinine Ratio Ur 9 mg/dL (0-20); Microalbumin Random Urine 1 ug/dL (0-20)
== END 2023-11-03 08:14 | disposition home or self-care (01) ==
PROVIDERS: PCP Internal Medicine; Visit Provider Internal Medicine
DX: E78.2 Mixed hyperlipidemia (principal); E10.9 Type 1 diabetes mellitus without complications
CPT/HCPCS: 36415; 80053; 80061; 82044; 83036

== ENCOUNTER → 2023-11-10 10:22 | Outpatient (BNVA) | payer MEDICARE, MEDICAID, SELFPAY | PROVIDERS: PCP Internal Medicine; Visit Provider Internal Medicine | DX: E78.2 Mixed hyperlipidemia; G35 Multiple sclerosis; Z12.5 Encounter for screening for malignant neoplasm of prostate; E10.9 Type 1 diabetes mellitus without complications; Z79.4 Long term (current) use of insulin; Z79.84 Long term (current) use of oral hypoglycemic drugs | CPT/HCPCS: 99214 ==

== ENCOUNTER → 2023-11-21 14:36 | Outpatient (BNVA) | payer MEDICARE, MEDICAID, SELFPAY | PROVIDERS: PCP Internal Medicine; Visit Provider Podiatrist Foot & Ankle Surgery | DX: L60.3 Nail dystrophy; E11.628 Type 2 diabetes mellitus with other skin complications; Z79.4 Long term (current) use of insulin; Z79.84 Long term (current) use of oral hypoglycemic drugs | CPT/HCPCS: 11721; 99203 ==

== ENCOUNTER → 2024-01-03 09:26 | Outpatient (BNVA) | payer MEDICARE, MEDICAID, SELFPAY | PROVIDERS: PCP Internal Medicine; Visit Provider Specialist | DX: G35 Multiple sclerosis (principal); Z79.891 Long term (current) use of opiate analgesic | CPT/HCPCS: 99215 ==

== ENCOUNTER 2024-02-08 11:17 | Outpatient (CLI) | payer MEDICARE, MEDICAID, SELFPAY ==
[2024-02-08 11:53] LABS: Estmated Average Glucose 131; Hemoglobin A1C 6.2 % (4.0-6.0)
[2024-02-08 11:57] LABS: Alanine Aminotransferase 27 U/L (0-41); Albumin Level 4.3 g/dL (3.5-5.2); Alkaline Phosphatase 114 U/L (40-130); Anion Gap 11.6 (5-19); Aspartate Amino Transferase 25 U/L (0-40); Blood Urea Nitrogen 16 mg/dL (6-20); Calcium 9.6 mg/dL (8.5-10.5); Carbon Dioxide 29 mmol/L (22-29); Chloride 107 mmol/L (98-107); Chol HDL Ratio 3.84 mg/dL (1.0-5.00); Cholesterol 192 mg/dL (0-200); Globulin 3.1 g/dL (1.3-4.6); Glomerular Filtration Rate 106.5 mL/min (90-130); Glucose 124 mg/dL (65-115); HDL Cholesterol 50 mg/dL (60-100); LDL Cholesterol Calculated 122 mg/dL (50-129); LDL HDL Ratio 2.44 RATIO (0.00-3.22); Osmolality Calculated 299 mOsm/kg (285-295); Potassium 4.6 mmol/L (3.5-5.1); Sodium 143 mmol/L (136-145); Total Bilirubin 0.4 mg/dL (0.15-1.2); Total Protein 7.4 g/dL (6.6-8.7); Triglycerides 100 mg/dL (0-150)
[2024-02-08 12:03] LABS: Creatinine Urine, Random 12 mg/dL (39-259); Microalbumin Random Urine 1 ug/dL (0-20)
[2024-02-08 12:06] LABS: Microalbum Creatinine Ratio Ur 83 mg/dL (0-20)
== END 2024-02-08 11:18 | disposition home or self-care (01) ==
LOC: LAB 11:19
PROVIDERS: PCP Internal Medicine; Visit Provider Internal Medicine
DX: E10.9 Type 1 diabetes mellitus without complications (principal); E78.2 Mixed hyperlipidemia
CPT/HCPCS: 36415; 80053; 80061; 82044; 83036

== ENCOUNTER 2024-02-13 08:11 | Outpatient (CLI) | payer MEDICARE, MEDICAID, SELFPAY ==
--- NOTE | 2024-02-13 08:45 | MR_ITS ---
WS: [id number] MRI CERVICAL SPINE with and without contrast HISTORY: G35 - Multiple sclerosis COMPARISON: None available. Technique: Multiplanar, multisequence noncontrast imaging of the cervical spine. Postcontrast sequenc es, MultiHance 18 mL IV. Posterior cervical alignment is normal. T2 and FLAIR signal abnormalities within the cord are reident ified. T2 and FLAIR signal abnormalities in the cervical cord are identified near the upper cervical spine at the odontoid process. Additional focal increased T2 signal at the C2-3 level. There are scat tered areas of intramedullary demyelinating disease throughout the cervical cord. There is a focal in volving lesion at the T1 level. These lesions are better identified today than on the most recent MRI from 08/13/2021. More similar to the study from 01/11/2019. The signal abnormality at the T1 level lux s not definitely been identified on prior imaging studies. None of the demyelinating lesions enhance. There is no cord atrophy or enlargement. Craniocervical junction, C1 and C2 relationship, odontoid process and soft tissues are normal. C2-C3: Normal. C3-C4: Small foraminal osteophytes. No stenosis. C4-C5: Bilateral facet joint arthritis with mild LEFT foraminal stenosis. C5-C6: Mild osteophytic ridging. C6-C7: Normal. C7-T1: Normal. Paraspinal soft tissue are normal. MR/MR cervical spine wo/w [id number] IMPRESSION: 1. Multilevel level demyelinating lesions in the cervical cord and upper thora cic cord. Largest area of demyelination at the C2-3 level extends over a length of 1.7 cm. 2. New area of demyelination which does not enhance at T1 level measures 0.6 c m. 3. No areas of active demyelination or enhancement.
--- NOTE | 2024-02-13 09:30 | MR_ITS ---
WS: [email or web address] MRI BRAIN WITH AND WITHOUT CONTRAST HISTORY: G35 - Multiple sclerosis COMPARISON: 08/04/2021 TECHNIQUE: Multiplanar imaging performed through the brain with MultiHance 18 ml's IV. No acute infarcts are seen. Charles-white matter differentiation is well preserved. Reidentified are pat loli supra and infratentorial white matter changes. Some of these changes in a pericallosal distributi on consistent with chronic demyelinating plaques. Plaque burden is very similar to the prior examinat ion from 2020. Reidentified are plaques in the upper cervical cord which have been described by dedic ated MRI of the C-spine. No susceptibility artifacts or prior lacunar infarcts. Normal hippocampal formations. Ventricles and extra-axial spaces are normal. Clivus and pituitary gland are normal. Orbits and globes are negative. Postcontrast images are negative for masses or vascular malformations. No enhancement of the demyelin ating lesions. Dural venous sinuses are normal. Paranasal sinuses: Mild mucoperiosteal thickening in the RIGHT ethmoid air cells. No air-fluid levels in the sinuses. Mastoid air cells: Normal. Calvarium and scalp: Normal. MR/MR head wo/w con [id number] IMPRESSION: 1. Stable demyelinating plaques identified in the infratentorial and supratent orial white matter since 08/04/2021. 2. No enhancing lesions to suggest active demyelination. 3. No brain atrophy. 4. No enhancing mass.
[2024-02-13] MEDS: gadobenate dimeglumine 20 mL vial IV (10:14)
--- NOTE | 2024-02-13 10:15 | MR_ITS ---
WS: [id number] MRI THORACIC SPINE with and without contrast HISTORY: G35 - Multiple sclerosis COMPARISON: 08/13/2021 TECHNIQUE: Multiplanar sequences are performed in sagittal and axial planes. MultiHance 18 mL IV. The areas of increased T2 and STIR STIR signal within the thoracic cord are not as well visualized as on the prior study from 01/11/2019. Also not as well visualized as 08/13/2021. Believe these areas ar e still present, scattered throughout the thoracic cord. There was a demyelinating lesion at T1 noted on the cervical MRI which does appear to have been present in 2020. There does not appear to be prog ression of the areas of demyelination but the lesions are not as well visualized today. No areas of e nhancement. No cord atrophy and no hemorrhage. Mild facet joint arthritis in the thoracic spine. No central stenosis or disc protrusions. Increasing facet joint arthritis from the mid to lower thoracic spine. MR/MR thoracic spine wo/w [id number] IMPRESSION: 1. No areas of active demyelination or enhancement within the thoracic cord. 2. The demyelinating lesions of the thoracic cord were better visualized in 20 19. There does not appear to been a progression since the prior exam. 3. No cord atrophy.
== END 2024-02-13 08:12 | disposition home or self-care (01) ==
LOC: RAD 08:12
PROVIDERS: PCP Internal Medicine; Visit Provider Specialist
DX: G35 Multiple sclerosis (principal); E10.628 Type 1 diabetes mellitus with other skin complications; E78.2 Mixed hyperlipidemia; B35.1 Tinea unguium; Z79.4 Long term (current) use of insulin
CPT/HCPCS: 70553; 72156; 72157; 99214; A9577

== ENCOUNTER → 2024-02-27 10:50 | Outpatient (BNVA) | payer MEDICARE, MEDICAID, SELFPAY | PROVIDERS: PCP Internal Medicine; Visit Provider Podiatrist Foot & Ankle Surgery | DX: E10.628 Type 1 diabetes mellitus with other skin complications (principal); L60.3 Nail dystrophy; M21.41 Flat foot [pes planus] (acquired), right foot; M21.42 Flat foot [pes planus] (acquired), left foot; G35 Multiple sclerosis; M21.621 Bunionette of right foot; M21.622 Bunionette of left foot; Z79.4 Long term (current) use of insulin | CPT/HCPCS: 11721; 99213 ==

== ENCOUNTER → 2024-04-03 12:29 | Outpatient (BNVA) | payer MEDICARE, MEDICAID, SELFPAY | PROVIDERS: PCP Internal Medicine; Visit Provider Specialist | DX: G35 Multiple sclerosis (principal); Z79.891 Long term (current) use of opiate analgesic | CPT/HCPCS: 99214; 99215 ==

== ENCOUNTER 2024-04-11 07:59 | Oncology outpatient (recurring) (ONCR) | payer MEDICARE, MEDICAID, SELFPAY ==
--- OUTSIDE RECORDS SUMMARY | 2024-04-05 10:18 | XMS_ITS ---
Author Name Unknown Organization [facility] ALLERGIES AND ADVERSE REACTIONS No information ASSESSMENT No information CHIEF COMPLAINT No information Vital Signs Bpsitting Date Temperature Weight Height Spo2 Respiration Bmi Ti merecorded Pulse 102/60 05/17/20 23 12:00: 00 AM null 181,0.00 6,0 96 20 24.5 08:27 74 130/80 015 12:00: 00 AM 98.4 178,0.00 5,10 null 16 25.54 13:23 76 110/70 018 12:00: 00 AM 98 164,0.00 6,0 97 null 22.24 13:23 78 138/72 017 12:00: 00 AM 97.8 172,0.00 6,0 99 20 23.32 13:23 71 118/66 06/22/20 22 12:00: 00 AM 98.3 138,0.00 6,0 91 16 18.71 13:23 120 116/72 017 12:00: 00 AM 97.5 166,0.00 6,0 99 null 22.51 13:23 69 118/60 02/15/20 18 12:00: 00 AM 98.1 156,0.00 6,0 98 null 21.16 13:23 84 124/72 019 12:00: 00 AM 97.4 154,0.00 6,0 98 18 20.88 13:23 77 118/70 06/19/20 18 12:00: 00 AM 97.9 166,0.00 6,0 98 null 22.51 13:23 74 138/80 020 12:00: 00 AM null 156,2.00 6,0 100 null 21.17 13:23 78 100/60 2013 12:00: 00 AM 97.6 169,0.00 5,10 null null 24.25 13:23 86 130/84 022 12:00: 00 AM null 157,6.00 6,0 98 18 21.34 13:23 64 122/74 2015 12:00: 00 AM null 162,0.00 6,0 95 null 21.97 13:23 86 130/82 10/18/19 22 12:00: 00 AM 97.7 157,0.00 6,0 97 null 21.29 13:23 73 132/80 01/18/20 19 12:00: 00 AM 97.8 165,0.00 null 99 null null 13:23 78 122/70 2017 12:00: 00 AM 98 159,0.00 6,0 96 null 21.56 13:23 80 138/76 015 12:00: 00 AM 98.2 165,0.00 5,10 98 16 23.67 13:23 94 118/76 017 12:00: 00 AM 98.6 168,0.00 6,0 98 null 22.78 13:23 70 140/90 020 12:00: 00 AM 97.8 158,8.00 6,0 97 null 21.49 13:23 120 130/80 021 12:00: 00 AM null 155,6.00 6,0 98 19 21.07 13:23 80 118/66 019 12:00: 00 AM null 154,0.00 6,0 97 20 20.88 13:23 86 110/62 2014 12:00: 00 AM 98 169,0.00 5,10 98 null 24.25 13:23 86 120/70 014 12:00: 00 AM 98.1 159,0.00 5,10 null null 22.81 13:23 70 106/58 014 12:00: 00 AM 98.1 164,0.00 null 97 null null 13:23 106 110/70 2014 12:00: 00 AM 97.5 163,0.00 5,10 98 16 23.39 13:23 94 null 024 12:00: 00 AM 99.4 28,0.00 null null 26 null 18:19 140 130/80 023 12:00: 00 AM 97.8 171,0.00 6,0 98 null 23.19 13:23 84 136/70 11/16/19 23 12:00: 00 AM null 170,0.00 6,0 97 20 23.05 05:57 94 116/70 023 12:00: 00 AM 98.1 178,0.00 null null 16 null 15:04 88 118/74 023 12:00: 00 AM 98.6 null 5,7 97 null null 12:45 96 122/76 024 12:00: 00 AM 98.8 230,0.00 5,6 99 20 37.12 08:56 81 126/70 12/20/19 19 12:00: 00 AM 98 160,0.00 6,0 97 null 21.7 13:23 78 130/78 016 12:00: 00 AM 98 164,0.00 6,0 98 null 22.24 13:23 80 120/78 03/18/20 20 12:00: 00 AM 97.9 159,4.00 6,0 97 null 21.6 13:23 77 116/60 12/18/19 24 12:00: 00 AM 98.1 150,0.00 5,4 95 null 25.74 14:38 null 122/82 06/22/20 23 12:00: 00 AM 98.7 234,0.00 5,10 99 20 33.57 11:35 79 130/72 11/17/19 16 12:00: 00 AM 97.9 176,0.00 6,0 97 16 23.87 13:23 92 120/70 015 12:00: 00 AM 98.6 163,0.00 5,10 95 null 23.39 13:23 84 126/80 018 12:00: 00 AM 97.9 158,0.00 6,0 97 null 21.43 13:23 80 132/76 023 12:00: 00 AM null 182,0.00 6,0 97 22 24.68 05:57 75 126/78 022 12:00: 00 AM null 141,0.00 6,0 98 22 19.12 13:23 110 120/76 021 12:00: 00 AM null 154,0.00 6,0 97 19 20.88 13:23 85 120/76 019 12:00: 00 AM null 159,0.00 6,0 97 null 21.56 13:23 91 130/86 024 12:00: 00 AM 98.3 182,0.00 null null 16 null 15:14 80 118/62 023 12:00: 00 AM null 173,16.0 0 6,0 97 18 23.6 15:37 103 136/80 023 12:00: 00 AM 98 null null null 16 null 10:42 74 128/78 016 12:00: 00 AM null 162,0.00 6,0 98 null 21.97 13:23 85 null 024 12:00: 00 AM null null null null null 29.12 15:08 null null 04/22/20 23 12:00: 00 AM null null null null null null 11:53 null OBJECTIVE DATA No information PHYSICAL EXAMINATION No information TREATMENT PLAN No information PROBLEMS No information RESULTS No information REVIEW OF SYSTEMS No information SUBJECTIVE DATA No information MEDICATIONS No information
--- OUTSIDE RECORDS SUMMARY | 2024-04-05 10:18 | XMS_ITS | Patient Health Record ---
Author Name Unknown Organization [facility] Address [address] [place] [address] Care Team Providers Care Director Of Video Analytics Name Role Phone Lit Montemayor Primary Care Provider [facility] Timo Macedo Unavailable Unavailable Jaime Muniz Unavailable [phone] Timo Gallegos Unavailable [phone] Allergies Allergen (clinical drug ingredient) Drug/Non Drug Allergy documented on EMR Reaction Allergy Type Onset Date Status glipizide glipiZIDE Unknown Drug Allergy Active carisoprodol Soma Unknown Drug Allergy Acti ve Reason For Referral No Information Medications Medication SIG (Take, Route, Frequency, Duration) Notes Start Date End Date Status Lantus Active NovoLOG Not-Taking HumaLOG Active HYDROcodone Bit-Homatrop MBr Active Insulin Aspart Activ e Social History Sex Assigned At : Social History Observation Description Sex Assigned At Male Vital Signs Heart Rate 70 /min 05/01/2023 Height-cm 177.8 cm 05/31/2023 Blood pressure diastolic 70 mm Hg 05/01/2023 Weight-kg 81.65 kg 05/31/2023 Height 70 in 05/31/2023 Blood pressure systolic 120 mm Hg 05/01/2023 Weight 180 lbs 05/31/2023 BMI 25.82 kg/m2 05/31/2023 Encounters Encounter Location Date Provider Diagnosis [facility] [address] [place] [address] 05/01/2023 Timo Gallegos [facility] [address] [place] [address] 05/31/2023 Jaime Muniz Plan Of Treatment No Information Insurance Providers Payer Name Payer Address Payer Phone Subscriber Number Group Number Insured Name Patient Relationship to Insured Coverage Start Date Coverage End Date Medicare [employer] Dental [address] [place] [address] [id number] Jim Luevano Self - patient is the insured [facility] [address] [place] [address] [id number] Jim Luevano Self - patient is the insured [facility] [address] [place] [address] [id number] Jim Luevano Self - patient is the insured Medicaid Dental [address] [place] [address] [id number] Jim Luevano Self - patient is the insured Medical (General) History Medical History History ICD Code scoliosis type I diabetes
--- OUTSIDE RECORDS SUMMARY | 2024-04-11 08:01 | XMS_ITS ---
Author Name Unknown Organization Unknown ALLERGIES AND ADVERSE REACTIONS No information ASSESSMENT No information CHIEF COMPLAINT No information MEDICATIONS No information OBJECTIVE DATA No information PHYSICAL EXAMINATION No information TREATMENT PLAN Planned Care Start Date Provider Encounter for Check-up [id number] [facility] PROBLEMS No information RESULTS No information REVIEW OF SYSTEMS No information SUBJECTIVE DATA No information VITAL SIGNS No information
--- OUTSIDE RECORDS SUMMARY | 2024-04-11 08:01 | XMS_ITS | Patient Health Record ---
Author Name Unknown Organization [facility] Address [address] [place] [address] Care Team Providers Care Box Repairer Name Role Phone Lit Montemayor Primary Care Provider [facility] Timo Macedo Unavailable Unavailable Jaime Muniz Unavailable [phone] Timo Gallegos Unavailable [phone] Allergies Allergen (clinical drug ingredient) Drug/Non Drug [...] 05/31/2023 Encounters Encounter Location Date Provider Diagnosis [facility] [address] [place] [address] 05/01/2023 [facility] [address] [place] [address] 05/31/2023 Jaime Muniz Plan Of Treatment No Information Insurance Providers Payer Name Payer Address Payer Phone Subscriber Number Group Number Insured Name Patient Relationship to Insured Coverage Start Date Coverage End Date Medicare [employer] Community Plan Dental [address] [place] [address] [id number] Jim Luevano Self - patient is the insured [facility] COM[facility]TE [address] [place] [address] [id number] Jim Luevano Self - patient is the insured [facility] [address] [place] [address] [id number] Jim Luevano Self - patient is the insured Medicaid Dental [address] [place] [address] [id number] Jim Luevano Self - patient is the insured Medical (General) History Medical History History ICD Code scoliosis type I diabetes
[2024-04-11] MEDS: sodium chloride 0.9% 250 ML 75 ML IV (08:23)
[2024-04-11] MEDS: acetaminophen 500 mg Tablet 1000 MG PO (08:24)
[2024-04-11] MEDS: diphenhydrAMINE 50 mg/mL SDV 1mL 25 MG IVP ×2 (08:25→10:41)
[2024-04-11] MEDS: ocrelizumab 300 MG in sodium chloride 0.9% 250 ML 30 MG IV (09:07)
[2024-04-11 09:10] VITALS: BP 108/77; PULSE 63; RESP 18; TEMP 35.9; O2SAT 99
[2024-04-11 09:40] VITALS: BP 103/61; PULSE 50; RESP 18; TEMP 36.4; O2SAT 95
[2024-04-11 10:15] VITALS: BP 114/55; PULSE 58; RESP 18; TEMP 36.1; O2SAT 96
[2024-04-11 10:30] VITALS: BP 112/73; PULSE 54; RESP 18; TEMP 36; O2SAT 97
[2024-04-11 12:50] VITALS: BP 126/80; PULSE 69; RESP 18; TEMP 36; O2SAT 95
== END 2024-04-11 23:59 | disposition home or self-care (01) ==
PROVIDERS: PCP Internal Medicine; Visit Provider Specialist
DX: G35 Multiple sclerosis (principal); Z79.620 Long term (current) use of immunosuppressive biologic
CPT/HCPCS: 96365; 96366; 96413; 96415; A4222; J1200; J2350; J7050

== ENCOUNTER 2024-04-24 08:41 | Oncology outpatient (recurring) (ONCR) | payer MEDICARE, MEDICAID, SELFPAY ==
[2024-04-24] VITALS (7 sets, daily range): BP systolic 107–128; BP diastolic 58–68; PULSE 56–80; RESP 16–17; TEMP 36–37.3; O2SAT 97–99
--- OUTSIDE RECORDS SUMMARY | 2024-04-24 08:43 | XMS_ITS | Patient Health Record ---
Author Name Unknown Organization [facility] Address [address] [place] [address] Care Team Providers Care Public Health Microbiologist Name Role Phone Lit Montemayor Primary Care Provider [facility] Timo Macedo Unavailable Unavailable Jaime Muniz Unavailable [phone] Timo Gallegos Unavailable [phone] Allergies Allergen (clinical drug ingredient) Drug/Non Drug [...] 05/31/2023 Encounters Encounter Location Date Provider Diagnosis [facility] [address] [place] [address] 05/01/2023 [facility] [address] [place] [address] 05/31/2023 Jaime Muniz Plan Of Treatment No Information Insurance Providers Payer Name Payer Address Payer Phone Subscriber Number Group Number Insured Name Patient Relationship to Insured Coverage Start Date Coverage End Date Medicare [employer] Community Plan Dental [address] [place] [address] [id number] Jim Luevano Self - patient is the insured [facility] COM[facility] [address] [place] [address] [id number] Jim Luevano Self - patient is the insured [facility] [place] [address] [place] [address] [id number] Jim Luevano Self - patient is the insured Medicaid Dental [address] [place] [address] [id number] Jim Luevano Self - patient is the insured Medical (General) History Medical History History ICD Code scoliosis type I diabetes
[2024-04-24] MEDS: acetaminophen 500 mg Tablet 1000 MG PO (10:07)
[2024-04-24] MEDS: diphenhydrAMINE 50 mg/mL SDV 1mL 25 MG IVP (10:08)
--- NOTE | 2024-04-24 10:17 | PC.NURSE ---
Pt declined methylprednisolone 125 mg IVP, stating is causes issues with his blood sugar.
[2024-04-24] MEDS: sodium chloride 0.9% 250 ML 75 ML IV (10:20)
[2024-04-24] MEDS: ocrelizumab 300 MG in sodium chloride 0.9% 250 ML 30 MG IV (10:47)
== END 2024-04-24 23:59 | disposition home or self-care (01) ==
PROVIDERS: PCP Internal Medicine; Visit Provider Specialist
DX: G35 Multiple sclerosis (principal)
CPT/HCPCS: 96367; 96413; 96415; A4222; J1200; J2350; J7050

== ENCOUNTER 2024-05-09 15:05 | Outpatient (CLI) | payer MEDICARE, MEDICAID, SELFPAY ==
[2024-05-09 15:47] LABS: Alanine Aminotransferase 94 U/L (0-41); Albumin Level 4.6 g/dL (3.5-5.2); Alkaline Phosphatase 114 U/L (40-130); Anion Gap 17.2 (5-19); Aspartate Amino Transferase 31 U/L (0-40); Blood Urea Nitrogen 14 mg/dL (6-20); Calcium 9.4 mg/dL (8.5-10.5); Carbon Dioxide 24 mmol/L (22-29); Chloride 111 mmol/L (98-107); Chol HDL Ratio 3.61 mg/dL (1.0-5.00); Cholesterol 177 mg/dL (0-200); Globulin 2.6 g/dL (1.3-4.6); Glucose 130 mg/dL (65-115); HDL Cholesterol 49 mg/dL (60-100); LDL Cholesterol Calculated 81 mg/dL (50-129); LDL HDL Ratio 1.65 RATIO (0.00-3.22); Osmolality Calculated 308 mOsm/kg (285-295); Potassium 4.2 mmol/L (3.5-5.1); Sodium 148 mmol/L (136-145); Total Bilirubin 0.3 mg/dL (0.15-1.2); Total Protein 7.2 g/dL (6.6-8.7); Triglycerides 233 mg/dL (0-150)
[2024-05-09 15:48] LABS: Creatinine Urine, Random 24 mg/dL (39-259); Microalbumin Random Urine 1 ug/dL (0-20)
[2024-05-09 15:54] LABS: Estmated Average Glucose 128; Hemoglobin A1C 6.1 % (4.0-6.0)
[2024-05-09 16:02] LABS: Microalbum Creatinine Ratio Ur 42 mg/dL (0-20)
== END 2024-05-09 15:06 | disposition home or self-care (01) ==
LOC: LAB 15:06
PROVIDERS: PCP Internal Medicine; Visit Provider Internal Medicine
DX: E10.628 Type 1 diabetes mellitus with other skin complications (principal)
CPT/HCPCS: 36415; 80053; 80061; 82044; 83036

== ENCOUNTER → 2024-05-16 08:52 | Outpatient (BNVA) | payer MEDICARE, MEDICAID, SELFPAY | PROVIDERS: PCP Internal Medicine; Visit Provider Internal Medicine | DX: E10.628 Type 1 diabetes mellitus with other skin complications (principal); E78.2 Mixed hyperlipidemia; B35.1 Tinea unguium; Z79.4 Long term (current) use of insulin | CPT/HCPCS: 99214 ==

== ENCOUNTER → 2024-05-28 11:15 | Outpatient (BNVA) | payer MEDICARE, MEDICAID, SELFPAY | PROVIDERS: PCP Internal Medicine; Visit Provider Podiatrist Foot & Ankle Surgery | DX: E10.628 Type 1 diabetes mellitus with other skin complications (principal); L60.3 Nail dystrophy; M21.41 Flat foot [pes planus] (acquired), right foot; M21.42 Flat foot [pes planus] (acquired), left foot; G35 Multiple sclerosis; M21.621 Bunionette of right foot; M21.622 Bunionette of left foot; Z79.4 Long term (current) use of insulin | CPT/HCPCS: 11721 ==

== ENCOUNTER 2024-09-18 09:43 | Outpatient (CLI) | payer MEDICARE, MEDICAID, SELFPAY ==
[2024-09-18 10:43] LABS: Estmated Average Glucose 128; Hemoglobin A1C 6.1 % (4.0-6.0)
[2024-09-18 10:49] LABS: Alanine Aminotransferase 46 U/L (0-41); Albumin Level 4.5 g/dL (3.5-5.2); Alkaline Phosphatase 104 U/L (40-130); Anion Gap 15.3 (5-19); Aspartate Amino Transferase 28 U/L (0-40); Blood Urea Nitrogen 21 mg/dL (6-20); Calcium 9.7 mg/dL (8.5-10.5); Carbon Dioxide 25 mmol/L (22-29); Chloride 106 mmol/L (98-107); Chol HDL Ratio 4.35 mg/dL (1.0-5.00); Cholesterol 209 mg/dL (0-200); Globulin 2.9 g/dL (1.3-4.6); Glucose 107 mg/dL (65-115); HDL Cholesterol 48 mg/dL (60-100); LDL Cholesterol Calculated 144 mg/dL (50-129); Osmolality Calculated 297 mOsm/kg (285-295); Potassium 4.3 mmol/L (3.5-5.1); Sodium 142 mmol/L (136-145); Total Bilirubin 0.4 mg/dL (0.15-1.2); Total Protein 7.4 g/dL (6.6-8.7); Triglycerides 84 mg/dL (0-150)
[2024-09-18 10:55] LABS: Creatinine Urine, Random 22 mg/dL (39-259); Microalbumin Random Urine 1 ug/dL (0-20)
[2024-09-18 10:56] LABS: Microalbum Creatinine Ratio Ur 45 mg/dL (0-20)
== END 2024-09-18 09:44 | disposition home or self-care (01) ==
LOC: LAB 09:45
PROVIDERS: PCP Internal Medicine; Visit Provider Internal Medicine
DX: E10.628 Type 1 diabetes mellitus with other skin complications (principal); E78.2 Mixed hyperlipidemia
CPT/HCPCS: 36415; 80053; 80061; 82044; 83036

== ENCOUNTER → 2024-09-19 08:15 | Outpatient (BNVA) | payer MEDICARE, MEDICAID, SELFPAY | PROVIDERS: PCP Internal Medicine; Visit Provider Internal Medicine | DX: E10.628 Type 1 diabetes mellitus with other skin complications (principal); E78.2 Mixed hyperlipidemia; B35.1 Tinea unguium; Z79.4 Long term (current) use of insulin | CPT/HCPCS: 99214 ==

== ENCOUNTER 2024-10-30 09:28 | Oncology outpatient (recurring) (ONCR) | payer MEDICARE, MEDICAID, SELFPAY ==
[2024-10-30 09:47] VITALS: BP 122/77; PULSE 68; TEMP 36.2; O2SAT 98
[2024-10-30] MEDS: acetaminophen 500 mg Tablet 1000 MG PO (10:08)
[2024-10-30] MEDS: sodium chloride 0.9% 250 ML 75 ML IV (10:08)
[2024-10-30] MEDS: diphenhydrAMINE 50 mg/mL SDV 1mL 25 MG IVP ×2 (10:10→12:24)
[2024-10-30] MEDS: ocrelizumab 600 MG in sodium chloride 0.9% 500 ML 40 MG IV (10:47)
[2024-10-30 11:25] VITALS: BP 104/67; PULSE 55; RESP 18; TEMP 37.1; O2SAT 97
[2024-10-30 11:55] VITALS: BP 110/66; PULSE 54; RESP 16; TEMP 36.3; O2SAT 98
[2024-10-30 12:30] VITALS: BP 113/61; PULSE 57; TEMP 36.6; O2SAT 97
[2024-10-30 13:00] VITALS: BP 104/57; PULSE 66; RESP 16; TEMP 36.9; O2SAT 98
[2024-10-30 14:43] VITALS: BP 114/69; PULSE 67; TEMP 36.8; O2SAT 98
== END 2024-10-30 23:59 | disposition home or self-care (01) ==
LOC: ONCMED 09:28
PROVIDERS: PCP Internal Medicine; Visit Provider Specialist
DX: G35 Multiple sclerosis (principal); Z79.620 Long term (current) use of immunosuppressive biologic
CPT/HCPCS: 96375; 96376; 96413; 96415; A4222; J1200; J2350; J7040; J7050

== ENCOUNTER 2025-03-04 09:19 | Outpatient (CLI) | payer MEDICARE, MEDICAID, SELFPAY ==
[2025-03-04 10:13] LABS: Alanine Aminotransferase 21 U/L (0-41); Albumin Level 4.2 g/dL (3.5-5.2); Alkaline Phosphatase 87 U/L (40-130); Anion Gap 13.3 (5-19); Aspartate Amino Transferase 17 U/L (0-40); Blood Urea Nitrogen 11 mg/dL (6-20); Calcium 9.1 mg/dL (8.5-10.5); Carbon Dioxide 25 mmol/L (22-29); Chloride 109 mmol/L (98-107); Chol HDL Ratio 2.53 mg/dL (1.0-5.00); Cholesterol 114 mg/dL (0-200); Globulin 2.7 g/dL (1.3-4.6); Glomerular Filtration Rate 92.5 mL/min (90-130); Glucose 144 mg/dL (65-115); HDL Cholesterol 45 mg/dL (60-100); LDL Cholesterol Calculated 53 mg/dL (50-129); LDL HDL Ratio 1.18 RATIO (0.00-3.22); Osmolality Calculated 298 mOsm/kg (285-295); Potassium 4.3 mmol/L (3.5-5.1); Sodium 143 mmol/L (136-145); Total Bilirubin 0.4 mg/dL (0.15-1.2); Total Protein 6.9 g/dL (6.6-8.7); Triglycerides 79 mg/dL (0-150)
[2025-03-04 10:15] LABS: Creatinine Urine, Random 13 mg/dL (39-259); Microalbum Creatinine Ratio Ur 77 mg/dL (0-20); Microalbumin Random Urine 1 ug/dL (0-20)
[2025-03-04 10:18] LABS: Estmated Average Glucose 151; Hemoglobin A1C 6.9 % (4.0-6.0)
== END 2025-03-04 09:20 | disposition home or self-care (01) ==
PROVIDERS: PCP Family Medicine; Visit Provider Internal Medicine
DX: E10.628 Type 1 diabetes mellitus with other skin complications (principal); E78.2 Mixed hyperlipidemia
CPT/HCPCS: 36415; 80053; 80061; 82044; 83036

== ENCOUNTER → 2025-03-20 09:35 | Outpatient (BNVA) | payer MEDICARE, BC, MEDICAID, SELFPAY | PROVIDERS: PCP Internal Medicine; Visit Provider Internal Medicine | DX: E10.628 Type 1 diabetes mellitus with other skin complications (principal); E78.2 Mixed hyperlipidemia | CPT/HCPCS: 99214 ==

== ENCOUNTER 2025-04-14 08:45 | Oncology outpatient (recurring) (ONCR) | payer OTHER, MEDICAID, SELFPAY | END 2025-04-14 23:59 | disposition home or self-care (01) | PROVIDERS: PCP Internal Medicine; Visit Provider Specialist | DX: Z53.9 Procedure and treatment not carried out, unspecified reason (principal) ==

== ENCOUNTER 2025-04-28 08:39 | Oncology outpatient (recurring) (ONCR) | payer OTHER, MEDICAID, SELFPAY ==
[2025-04-28] MEDS: diphenhydrAMINE 50 mg/mL SDV 1mL 25 MG IVP ×3 (09:58→11:46)
[2025-04-28] MEDS: methylPREDNISolone sod succ 125 mg/2 mL INJ IVP (09:59)
[2025-04-28] MEDS: methylPREDNISolone sod succ 125 mg SDV IVP (10:00)
[2025-04-28 10:26] VITALS: BP 122/71; PULSE 50; RESP 17; TEMP 36.2; O2SAT 99
[2025-04-28 10:41] VITALS: BP 114/62; PULSE 54; RESP 17; TEMP 36.4; O2SAT 97
[2025-04-28 11:05] VITALS: BP 115/49; PULSE 66; RESP 17; TEMP 36.3; O2SAT 95
[2025-04-28 11:35] VITALS: BP 115/66; PULSE 54; RESP 17; TEMP 36.4; O2SAT 98
[2025-04-28 13:01] VITALS: BP 123/69; PULSE 84; RESP 17; TEMP 36.4; O2SAT 99
== END 2025-04-28 23:59 | disposition home or self-care (01) ==
PROVIDERS: PCP Family Medicine; Visit Provider Specialist
DX: G35 Multiple sclerosis (principal); Z79.899 Other long term (current) drug therapy
CPT/HCPCS: 96375; 96413; A4222; J1200; J2350; J2919; J7040; J9999

== ENCOUNTER 2025-06-17 12:25 | Outpatient (CLI) | payer OTHER, MEDICAID, SELFPAY ==
[2025-06-17 14:00] LABS: Estmated Average Glucose 146; Hemoglobin A1C 6.7 % (4.0-6.0)
[2025-06-17 14:05] LABS: Alanine Aminotransferase 25 U/L (0-41); Albumin Level 4.2 g/dL (3.5-5.2); Alkaline Phosphatase 97 U/L (40-130); Anion Gap 13.1 (5-19); Aspartate Amino Transferase 18 U/L (0-40); Blood Urea Nitrogen 15 mg/dL (6-20); Calcium 8.9 mg/dL (8.5-10.5); Carbon Dioxide 25 mmol/L (22-29); Chloride 105 mmol/L (98-107); Cholesterol 202 mg/dL (0-200); Globulin 2.5 g/dL (1.3-4.6); Glucose 145 mg/dL (65-115); HDL Cholesterol 40 mg/dL (60-100); Osmolality Calculated 291 mOsm/kg (285-295); Potassium 4.1 mmol/L (3.5-5.1); Sodium 139 mmol/L (136-145); Total Protein 6.7 g/dL (6.6-8.7); Triglycerides 183 mg/dL (0-150)
[2025-06-17 14:14] LABS: Creatinine Urine, Random 13 mg/dL (39-259)
[2025-06-17 14:15] LABS: Microalbum Creatinine Ratio Ur 77 mg/dL (0-20)
== END 2025-06-17 12:26 | disposition home or self-care (01) ==
LOC: LAB 12:27
PROVIDERS: PCP Family Medicine; Visit Provider Internal Medicine
DX: E10.628 Type 1 diabetes mellitus with other skin complications (principal)
CPT/HCPCS: 36415; 80053; 80061; 82044; 83036

== ENCOUNTER → 2025-06-19 09:48 | Outpatient (BNVA) | payer MEDICARE, MEDICAID, SELFPAY | PROVIDERS: PCP Internal Medicine; Visit Provider Internal Medicine | DX: E10.9 Type 1 diabetes mellitus without complications (principal); E78.2 Mixed hyperlipidemia; B35.1 Tinea unguium | CPT/HCPCS: 99214 ==

== ENCOUNTER 2025-08-20 09:35 | Outpatient (RCR) | payer MEDICARE, MEDICAID, SELFPAY | END 2025-09-14 23:59 | disposition home or self-care (01) | LOC: SPT 09:35 | PROVIDERS: Visit Provider Family Medicine | DX: R26.9 Unspecified abnormalities of gait and mobility (principal); G35.D Multiple sclerosis, unspecified | CPT/HCPCS: 97110; 97112; 97161 ==

== ENCOUNTER 2025-09-09 09:28 | Outpatient (CLI) | payer MEDICARE, MEDICAID, SELFPAY ==
[2025-09-09 10:26] LABS: Estmated Average Glucose 128; Hemoglobin A1C 6.1 % (4.0-6.0)
[2025-09-09 10:32] LABS: Alanine Aminotransferase 18 U/L (0-41); Albumin Level 4.4 g/dL (3.5-5.2); Alkaline Phosphatase 81 U/L (40-130); Anion Gap 14.3 (5-19); Aspartate Amino Transferase 19 U/L (0-40); Blood Urea Nitrogen 16 mg/dL (6-20); Calcium 9.0 mg/dL (8.5-10.5); Carbon Dioxide 23 mmol/L (22-29); Chloride 109 mmol/L (98-107); Cholesterol 228 mg/dL (0-200); Globulin 2.7 g/dL (1.3-4.6); Glucose 145 mg/dL (65-115); HDL Cholesterol 50 mg/dL (60-100); Osmolality Calculated 298 mOsm/kg (285-295); Potassium 4.3 mmol/L (3.5-5.1); Sodium 142 mmol/L (136-145); Total Protein 7.1 g/dL (6.6-8.7); Triglycerides 97 mg/dL (0-150)
[2025-09-09 10:33] LABS: Creatinine Urine, Random 37 mg/dL (39-259); Microalbum Creatinine Ratio Ur 27 mg/dL (0-20)
== END 2025-09-09 09:29 | disposition home or self-care (01) ==
LOC: LAB 09:30
PROVIDERS: Visit Provider Internal Medicine
DX: E10.628 Type 1 diabetes mellitus with other skin complications (principal)
CPT/HCPCS: 36415; 80053; 80061; 82044; 83036

== ENCOUNTER 2025-09-15 05:00 | Outpatient (RCR) | payer MEDICARE, MEDICAID, SELFPAY | END 2025-10-15 23:59 | disposition home or self-care (01) | LOC: SPT 05:00 | PROVIDERS: Visit Provider Family Medicine | DX: R26.9 Unspecified abnormalities of gait and mobility (principal); G35.D Multiple sclerosis, unspecified | CPT/HCPCS: 97110; 97164 ==